=== PATIENT | male | born 1955 | race Caucasian/White ===

== ENCOUNTER 2017-07-04 15:04 | Inpatient (IN) | payer OTHER ==
[~2017-07-04] VITALS: Ht 175.3 cm; Wt 83.0 kg
[~2017-07-04 15:04] MED LIST: IRON28TA PO; LISI-363 PO; MAGN400 PO; METO50TA PO; MULTCAP14 PO; PROT40TA PO
[2017-07-04] MEDS ORDERED: SODIUM CHLORIDE 0.9% FLUSH 5 ML FLUSH IV FLUSH PRN (15:15)
[2017-07-04 15:18] VITALS: BP 133/89; PULSE 76; RESP 18; TEMP 98.3; O2SAT 97
--- NOTE | 2017-07-04 15:56 | RADRPT ---
EXAM DATE/TIME: 07/04/2017 15:19 [facility] COMPARISON: CHEST SINGLE AP, March 11, 2015, 13:02. INDICATIONS : Evaluate for syncope and chest pain from fall. MEDICAL HISTORY : None. SURGICAL HISTORY : None. ENCOUNTER: Initial ACUITY: 1 day PAIN SCORE: 10/10 LOCATION: Bilateral chest FINDINGS: A single view of the chest demonstrates the lungs to be symmetrically aerated without evidence of mas s or infiltrate. There is some minimal blunting of the right costophrenic angle which could represent a very small effusion. The is stable, 1.8 cm density projects over the posterior left seventh rib a nd probably represents callus associated with prior fracture. No pneumothorax. Osseous structures are otherwise intact. The cardiomediastinal contours are unremarkable. CONCLUSION: 1. Probable old healed fracture deformity with callous in the posterior aspect of the left seventh ri b. 2. No acute infiltrate. 3. No blunting of the right costophrenic angle may represent a small effusion or pleural parenchymal scarring. . Felipe Dove MD on July 04, 2017 at 15:50 Board Certified Radiologist. This report was verified electronically.
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
[2017-07-04 16:15] LABS: AUTOMATED NEUTROPHIL # 6.6 TH/MM3 (1.8-7.7); BASOPHIL % 0.2 % (0.0-2.0); EOSINOPHIL % 0.2 % (0.0-4.0); HEMATOCRIT 36.3 % (39.0-51.0); HEMO FLAGS DIFF FINAL; LYMPH % 6.4 % (9.0-44.0); LYMPHOCYTE # 0.5 TH/MM3 (1.0-4.8); MEAN CELL VOLUME 98.9 FL (80.0-100.0); MEAN CORPUSCULAR HEMOGLOBIN 34.9 PG (27.0-34.0); MEAN CORPUSCULAR HGB CONC 35.3 % (32.0-36.0); MONO % 11.1 % (0.0-8.0); NEUT % 82.1 % (16.0-70.0); PLATELET COUNT 117 TH/MM3 (150-450); RED BLOOD COUNT 3.67 MIL/MM3 (4.50-5.90)
[2017-07-04 16:32] LABS: APTT (PATIENT) 28.7 SEC (24.3-30.1); INTERNATIONAL NORMALIZED RATIO 1.1 RATIO; PROTHROMBIN TIME - PATIENT 12.5 SEC (9.8-11.6)
[2017-07-04 17:05] LABS: ALCOHOL LESS THAN 3 MG/DL (0-5); ALKALINE PHOSPHATASE 46 U/L (45-117); ALT (GPT) 62 U/L (12-78); ANION GAP 13 MEQ/L (5-15); AST (GOT) 76 U/L (15-37); BLOOD UREA NITROGEN 11 MG/DL (7-18); CHLORIDE 80 MEQ/L (98-107); CREATINE KINASE 507 U/L (39-308); GLOMERULAR FILTRATION RATE 54 ML/MIN (>89); POTASSIUM 3.5 MEQ/L (3.5-5.1); TOTAL BILIRUBIN ADULT 1.3 MG/DL (0.2-1.0)
[2017-07-04 17:11] LABS: SODIUM (NA) 119 MEQ/L (136-145)
[2017-07-04] MEDS ORDERED: DIPHTH/TETANUS/ACEL PERTUSSIS (BOOSTER) 0.5 ML VIAL/PFS IM ONE (17:30)
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
[2017-07-04 17:31] VITALS: BP 155/88; PULSE 76; RESP 18; TEMP 98.3; O2SAT 97; O2SAT 99
[2017-07-04 17:37] LABS: CKMB 3.3 NG/ML (0.5-3.6)
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
[2017-07-04] MEDS ORDERED: PANT40TA3 PO (18:38)
[2017-07-04] MEDS ORDERED: LISI-515 PO (18:38)
[2017-07-04] MEDS ORDERED: MULT1TAB39 PO (18:38)
[2017-07-04] MEDS ORDERED: METO50TA PO (18:38)
--- NOTE | 2017-07-04 18:40 | PD ---
Physical Exam Date Seen by Provider: Jul 04, 2017 Time Seen by Provider: 18:38 Data Data Last Documented VS Vital Signs Date Time Temp Pulse Resp B/P (MAP) Pulse Ox O2 Delivery O2 Flow Rate FiO2 07/04/17 17:31 79 18 98 Room Air 07/04/17 17:31 98.3 155/88 (110) Orders Orders Ammonia (07/04/17 15:10) Complete Blood Count With Diff (07/04/17 15:10) Comprehensive Metabolic Panel (07/04/17 15:10) Creatine Kinase (Cpk) (07/04/17 15:10) Prothrombin Time / Inr (Pt) (07/04/17 15:10) Act Partial Throm Time (Ptt) (07/04/17 15:10) Troponin I (07/04/17 15:10) Urinalysis - C+S If Indicated (07/04/17 15:10) Chest, Single Ap (07/04/17 15:10) Ct Brain W/O Iv Contrast(Rout) (07/04/17 15:10) Blood Glucose (07/04/17 15:10) Ecg Monitoring (07/04/17 15:10) Iv Access Insert/Monitor (07/04/17 15:10) Cath For Specimen (07/04/17 15:10) Oximetry (07/04/17 15:10) Sodium Chloride 0.9% Flush (Ns Flush) (07/04/17 15:15) Drug Screen, Random Urine (07/04/17 15:10) Alcohol (Ethanol) (07/04/17 15:10) CKMB (07/04/17 15:45) CKMB% (07/04/17 15:45) Ct Cerv Spine W/O Contrast (07/04/17 ) [id number] (Booster) Inj (Boostrix (07/04/17 17:30) Sodium, Random Urine (07/04/17 17:29) Potassium, Random Urine (K) (07/04/17 17:29) Cortisol (07/04/17 18:57) Creatinine, Random Urine (07/04/17 18:57) Osmolality, Urine (07/04/17 18:57) Osmolality,Serum (07/04/17 18:57) Thyroid Stimulating Hormone (07/04/17 18:57) Urine Urea Random (07/04/17 18:57) Sodium (Na) (07/04/17 22:00) Sodium (Na) (07/05/17 10:00) Sodium (Na) (07/05/17 16:00) Sodium (Na) (07/05/17 22:00) Sodium (Na) (07/06/17 04:00) Admit Order (Ed Use Only) (07/04/17 ) Labs Laboratory Tests Test 07/04/17 15:45 07/04/17 15:48 07/04/17 17:40 White Blood Count 8.0 TH/MM3 Red Blood Count 3.67 MIL/MM3 Hemoglobin 12.8 GM/DL Hematocrit 36.3 % Mean Corpuscular Volume 98.9 FL Mean Corpuscular Hemoglobin 34.9 PG Mean Corpuscular Hemoglobin Concent 35.3 % Red Cell Distribution Width 15.0 % Platelet Count 117 TH/MM3 Mean Platelet Volume 8.2 FL Neutrophils (%) (Auto) 82.1 % Lymphocytes (%) (Auto) 6.4 % Monocytes (%) (Auto) 11.1 % Eosinophils (%) (Auto) 0.2 % Basophils (%) (Auto) 0.2 % Neutrophils # (Auto) 6.6 TH/MM3 Lymphocytes # (Auto) 0.5 TH/MM3 Monocytes # (Auto) 0.9 TH/MM3 Eosinophils # (Auto) 0.0 TH/MM3 Basophils # (Auto) 0.0 TH/MM3 CBC Comment DIFF FINAL Differential Comment Prothrombin Time 12.5 SEC Prothromb Time International Ratio 1.1 RATIO Activated Partial Thromboplast Time 28.7 SEC Blood Urea Nitrogen 11 MG/DL Creatinine 1.33 MG/DL Random Glucose 177 MG/DL Total Protein 6.8 GM/DL Albumin 3.5 GM/DL Calcium Level 7.8 MG/DL Alkaline Phosphatase 46 U/L Aspartate Amino Transf (AST/SGOT) 76 U/L Alanine Aminotransferase (ALT/SGPT) 62 U/L Total Bilirubin 1.3 MG/DL Sodium Level 119 MEQ/L Potassium Level 3.5 MEQ/L Chloride Level 80 MEQ/L Carbon Dioxide Level 26.0 MEQ/L Anion Gap 13 MEQ/L Estimat Glomerular Filtration Rate 54 ML/MIN Total Creatine Kinase 507 U/L Creatine Kinase MB 3.3 NG/ML Creatine Kinase MB % 0.7 % Troponin I LESS THAN 0.02 NG/ML B-Type Natriuretic Peptide 114 PG/ML Ethyl Alcohol Level LESS THAN 3 MG/DL Ammonia 13 MCMOL/L Urine Color YELLOW Urine Turbidity CLEAR Urine pH 6.5 Urine Specific [place] 1.005 Urine Protein NEG mg/dL Urine Glucose (UA) 70 mg/dL Urine Ketones NEG mg/dL Urine Occult Blood NEG Urine Nitrite NEG Urine Bilirubin NEG Urine Urobilinogen 4.0 MG/DL Urine Leukocyte Esterase NEG Urine WBC LESS THAN 1 /hpf Microscopic Urinalysis Comment CATH-CULT NOT IND Urine Random Sodium 35 MEQ/L Urine Random Potassium 15 MEQ/L Urine Opiates Screen NEG Urine Barbiturates Screen NEG Urine Amphetamines Screen NEG Urine Benzodiazepines Screen NEG Urine Cocaine Screen NEG Urine Cannabinoids Screen NEG MDM Supervised Visit with DORI: No Narrative Course I was asked to evaluate this patient's scalp laceration. The patient was initially seen by Dr. Mccormack. Please see his note for full H&P. On my exam the patient is alert and oriented. There is a 4 cm laceration on the apex of the scalp without active bleeding.. Laceration repair was performed. Please see my procedure note for details. Dr. Mccormack retains care of this patient. Please see his note for disposition. Procedures Procedure Narrative LACERATION LOCATION: Scalp LENGTH: 4 cm NUMBER OF STITCHES/MYKEL: 5 mykel REPAIR: The area of the laceration was prepped with Betadine and sterilely draped. The laceration was infiltrated with 1% lidocaine. The wound was copiously irrigated and explored without evidence of foreign body, tendon injury or neurovascular injury. The wound was closed using surgical mykel. This was a single layer repair. The patient was advised to keep the wound clean and dry. Patient tolerated the procedure well. Michell Buenrostro Jul 04, 2017 18:40
[2017-07-04 18:52] LABS: BLOOD, URINE NEG (NEG); COMMENT (UR) CATH-CULT NOT IND; CULTURE IF INDICATED CATH CULTURE NOT IND; GLUCOSE,URINE 70 mg/dL (NEG); KETONE, URINE NEG (NEG); NITRITE,URINE NEG (NEG); PH, URINE 6.5 (5.0-8.5); URINE COLOR YELLOW (YELLW/STRAW)
[2017-07-04] MEDS ORDERED: CHLORHEXIDINE GLUCONATE 2 % 1 PACK (2 CLOTHS) TOP PRN (19:15)
[2017-07-04] MEDS ORDERED: RESP: ALBUTEROL 2.5 MG/3 ML NEB (PRN) INH (19:15)
[2017-07-04] MEDS ORDERED: MISCELLANEOUS NURSING INFORMATION XX SCH (19:15)
[2017-07-04] MEDS ORDERED: SODIUM CHLORIDE 0.9% FLUSH 10 ML FLUSH IV FLUSH PRN (19:15)
[2017-07-04] MEDS ORDERED: ACETAMINOPHEN 325 MG TAB PO PRN (19:15)
[2017-07-04] MEDS ORDERED: LACTULOSE SYRUP 20 GM/30 ML CUP PO PRN (19:15)
[2017-07-04] MEDS ORDERED: ONDANSETRON HCL 4 MG/2 ML VIAL IV PUSH PRN (19:15)
[2017-07-04] MEDS ORDERED: BISACODYL 10 MG SUPP RECTAL PRN (19:15)
[2017-07-04] MEDS ORDERED: MAGNESIUM HYDROXIDE SUSP 30 ML CUP PO PRN (19:15)
[2017-07-04] MEDS ORDERED: SENNOSIDES 8.6 MG TAB PO PRN (19:15)
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
[2017-07-04 20:00] VITALS: BP 137/67; PULSE 84; RESP 17; O2SAT 96
[2017-07-04] MEDS ORDERED: SODIUM CHLOR 0.9% 1000 ML INJ 1,000 ML IV SCH (20:00)
[2017-07-04] MEDS: MULTIVITAMIN TAB PO SCH (20:03)
[2017-07-04] MEDS: THIAMINE INJ 100 MG in SODIUM CHLORIDE 0.9% INJ 100 ML IV SCH (20:03)
[2017-07-04] MEDS: HEPARIN SODIUM - SQ 10,000 UNITS/ML VIAL SQ SCH (20:04)
[2017-07-04] MEDS ORDERED: GLUCAGON 1 MG/ML VIAL OTHER PRN (20:45)
[2017-07-04] MEDS ORDERED: DEXTROSE 50% IN WATER 50 ML VIAL(D50) IV PUSH PRN (20:45)
[2017-07-04 20:59] LABS: MAGNESIUM 0.4 MG/DL (1.5-2.5)
[2017-07-04 21:00] VITALS: BP 124/72; PULSE 73; RESP 12; TEMP 98.5; O2SAT 97
[2017-07-04] MEDS: INSULIN ASPART SUPPLEMENTAL SCALE SQ SCH (21:00)
[2017-07-04 21:31] LABS: CORTISOL 31.8 MCG/DL
[2017-07-04] MEDS: DOCUSATE SODIUM 50 MG/SENNA 8.6 MG TAB PO SCH (22:01)
[2017-07-04] MEDS: SODIUM CHLORIDE 0.9% FLUSH 10 ML FLUSH IV FLUSH SCH (22:01)
[2017-07-04] MEDS ORDERED: MAGNESIUM SULFATE 1 GM PREMIX 100 ML IV SCH (22:45)
[2017-07-04 23:00] VITALS: PULSE 79
[2017-07-04] MEDS: MAGNESIUM SULFATE 1 GM PREMIX 100 ML IV SCH (23:47)
--- NOTE | 2017-07-04 23:50 | RADRPT ---
EXAM DATE/TIME: 07/04/2017 23:03 [place] COMPARISON: No previous studies available for comparison. INDICATIONS : Increased BUN and creatinine. MEDICAL HISTORY : Hypertension. Gastroesophageal reflux disease. ETOH abuse. Pneumonia. Seizures. Ulcer. SURGICAL HISTORY : Left upper wedge resection. ENCOUNTER: Initial ACUITY: 1 day PAIN SCORE: 0/10 LOCATION: Bilateral flank MEASUREMENTS: RIGHT KIDNEY: 9.8 x 4.9 x 5.6 cm LEFT KIDNEY: 9.6 x 4.9 x 6.0 cm FINDINGS: RIGHT KIDNEY: Renal cortex is normal in thickness and echotexture. No evidence of hydronephrosis or shadowing ston e. There is a lesion in the upper pole cortex which is poorly defined and has a mixed pattern of ech otexture, both hyperechoic and hypoechoic, measuring 1.8 x 1.6 x 1.8 cm. No increased flow seen by c olor Doppler. LEFT KIDNEY: Renal cortex is normal in thickness and echotexture. No hydronephrosis, stone, or mass. BLADDER: Within normal limits given the degree of distension. CONCLUSION: 1. No evidence of hydronephrosis. 2. Heterogeneous echotexture lesion upper pole right kidney measure 1.8 cm and has features sugges tive of a solid mass. Marcelo Pandey MD on July 04, 2017 at 23:46 Board Certified Radiologist. This report was verified electronically.
[2017-07-05] VITALS (10 sets, daily range): BP systolic 111–161; BP diastolic 67–86; PULSE 75–95; RESP 16–24; TEMP 98–98.6; O2SAT 95–100
[2017-07-05] MEDS: MAGNESIUM SULFATE 1 GM PREMIX 100 ML IV SCH ×3 (00:50→03:03)
[2017-07-05] MEDS: CHLORHEXIDINE GLUCONATE 2 % 1 PACK (2 CLOTHS) TOP SCH (04:00)
[2017-07-05 05:28] LABS: AUTOMATED NEUTROPHIL # 7.4 TH/MM3 (1.8-7.7); BASOPHIL % 0.3 % (0.0-2.0); EOSINOPHIL % 0.1 % (0.0-4.0); HEMATOCRIT 35.2 % (39.0-51.0); HEMO FLAGS DIFF FINAL; LYMPH % 6.1 % (9.0-44.0); LYMPHOCYTE # 0.6 TH/MM3 (1.0-4.8); MEAN CELL VOLUME 98.3 FL (80.0-100.0); MEAN CORPUSCULAR HEMOGLOBIN 35.2 PG (27.0-34.0); MEAN CORPUSCULAR HGB CONC 35.8 % (32.0-36.0); NEUT % 81.5 % (16.0-70.0); PLATELET COUNT 107 TH/MM3 (150-450); RED BLOOD COUNT 3.58 MIL/MM3 (4.50-5.90); WHITE BLOOD COUNT 9.1 TH/MM3 (4.0-11.0)
[2017-07-05 06:07] LABS: ALKALINE PHOSPHATASE 38 U/L (45-117); ALT (GPT) 52 U/L (12-78); ANION GAP 11 MEQ/L (5-15); AST (GOT) 56 U/L (15-37); BICARBONATE 27.2 MEQ/L (21.0-32.0); BLOOD UREA NITROGEN 11 MG/DL (7-18); CHLORIDE 88 MEQ/L (98-107); GLOMERULAR FILTRATION RATE 70 ML/MIN (>89); MAGNESIUM 1.7 MG/DL (1.5-2.5); SODIUM (NA) 126 MEQ/L (136-145); TOTAL BILIRUBIN ADULT 1.3 MG/DL (0.2-1.0)
[2017-07-05 06:30] LABS: POTASSIUM 2.8 MEQ/L (3.5-5.1)
[2017-07-05] MEDS ORDERED: POTASSIUM CHLORIDE 25 MEQ EFFERVESCENT TAB PO PRN (06:45)
[2017-07-05] MEDS ORDERED: POTASSIUM CHLOR 20 MEQ PREMIX 100 ML IV PRN (06:45)
[2017-07-05] MEDS ORDERED: MAGNESIUM OXIDE 400 MG TAB PO PRN (06:45)
[2017-07-05] MEDS ORDERED: POTASSIUM CHLOR 40 MEQ PREMIX 100 ML IV PRN ×2 (06:45)
[2017-07-05] MEDS ORDERED: SODIUM PHOSPHATE INJ 30 MMOL in SODIUM CHLOR 0.9% 250 ML INJ 240 ML IV PRN (06:45)
[2017-07-05] MEDS ORDERED: MAGNESIUM SULFATE INJ 4 GM in SODIUM CHLORIDE 0.9% INJ 92 ML IV PRN (06:45)
[2017-07-05] MEDS ORDERED: POTASSIUM PHOSPHATE INJ 30 MMOL in SODIUM CHLOR 0.9% 250 ML INJ 250 ML IV PRN (06:45)
[2017-07-05] MEDS ORDERED: POTASSIUM PHOSPHATE MONOBASIC 500 MG TAB PO PRN (06:45)
[2017-07-05] MEDS ORDERED: MAGNESIUM SULFATE INJ 2 GM in SODIUM CHLORIDE 0.9% INJ 96 ML IV PRN (06:45)
[2017-07-05] MEDS ORDERED: POTASSIUM PHOSPHATE MONOBASIC 500 MG TAB PO/TUBE PRN (06:45)
[2017-07-05] MEDS: DEXT 5%-NACL 0.9% 1000 ML INJ 1,000 ML IV SCH ×2 (06:57→17:48)
[2017-07-05] MEDS: POTASSIUM CHLOR 20 MEQ PREMIX 100 ML IV PRN ×4 (06:58→17:48)
[2017-07-05] MEDS: INSULIN ASPART SUPPLEMENTAL SCALE SQ SCH ×4 (08:00→21:00)
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
[2017-07-05] MEDS ORDERED: DESMOPRESSIN ACETATE 4 MCG/ML VIAL IV PUSH PRN (08:30)
[2017-07-05] MEDS: SODIUM CHLORIDE 0.9% FLUSH 10 ML FLUSH IV FLUSH SCH ×2 (10:26→21:00)
[2017-07-05] MEDS: METOPROLOL TARTRATE 25 MG TAB PO SCH ×2 (10:26→21:41)
[2017-07-05] MEDS: MULTIVITAMIN TAB PO SCH (10:26)
[2017-07-05] MEDS: HEPARIN SODIUM - SQ 10,000 UNITS/ML VIAL SQ SCH ×2 (10:26→21:42)
[2017-07-05] MEDS: DOCUSATE SODIUM 50 MG/SENNA 8.6 MG TAB PO SCH ×2 (10:26→21:41)
[2017-07-05] MEDS: PANTOPRAZOLE SOD 40 MG DELAYED RELEASE TAB PO SCH (10:27)
[2017-07-05] MEDS: MAGNESIUM OXIDE 400 MG TAB PO SCH ×2 (10:27→21:41)
[2017-07-05] MEDS: THIAMINE INJ 100 MG in SODIUM CHLORIDE 0.9% INJ 100 ML IV SCH (12:25)
--- NOTE | 2017-07-05 17:38 | EKG ---
Date Performed: 07/04/2017 Time Performed: 22:34:03 PTAGE: 62 years EKG: Sinus rhythm MINIMAL ST DEPRESSION BORDERLINE ECG Compared to PREVIOUS TRACING , ST depression is slightly more prominent, otherwise no significant wilmar nge. PREVIOUS TRACIN03/11/2015 13.27 DOCTOR: Miah Qureshi Interpretating Date/Time 07/05/2017 17:36:18
[2017-07-06] VITALS (9 sets, daily range): BP systolic 139–194; BP diastolic 65–92; PULSE 66–88; RESP 16–24; TEMP 98–98.5; O2SAT 97–100
[2017-07-06] MEDS: CHLORHEXIDINE GLUCONATE 2 % 1 PACK (2 CLOTHS) TOP SCH (04:00)
[2017-07-06] MEDS ORDERED: LABETALOL HCL 100 MG/20 ML VIAL IV PUSH PRN (05:30)
[2017-07-06] MEDS ORDERED: hydrALAZINE HCL 20 MG/ML VIAL IV PUSH PRN (05:30)
[2017-07-06] MEDS ORDERED: amLODIPine BESYLATE 5 MG TAB PO ONE (05:45)
[2017-07-06] MEDS: DEXT 5%-NACL 0.9% 1000 ML INJ 1,000 ML IV SCH (06:35)
[2017-07-06] MEDS: INSULIN ASPART SUPPLEMENTAL SCALE SQ SCH ×3 (08:00→17:00)
[2017-07-06] MEDS: THIAMINE INJ 100 MG in SODIUM CHLORIDE 0.9% INJ 100 ML IV SCH (09:39)
[2017-07-06] MEDS: MULTIVITAMIN TAB PO SCH (09:40)
[2017-07-06] MEDS: DOCUSATE SODIUM 50 MG/SENNA 8.6 MG TAB PO SCH (09:40)
[2017-07-06] MEDS: SODIUM CHLORIDE 0.9% FLUSH 10 ML FLUSH IV FLUSH SCH (09:40)
[2017-07-06] MEDS: METOPROLOL TARTRATE 25 MG TAB PO SCH ×2 (09:40→21:36)
[2017-07-06] MEDS: PANTOPRAZOLE SOD 40 MG DELAYED RELEASE TAB PO SCH (09:40)
[2017-07-06] MEDS: MAGNESIUM OXIDE 400 MG TAB PO SCH ×2 (09:40→21:35)
[2017-07-06] MEDS: HEPARIN SODIUM - SQ 10,000 UNITS/ML VIAL SQ SCH ×2 (09:41→21:37)
--- NOTE | 2017-07-06 10:43 | MG ---
cc: TASNEEM HDZ M.D. Lab No: [id number] Date: 07/06/17 Age: 62 Sex: M Race: HISTORY A 62-year-old. Awake drowsy EEG. Hit his head. Seeing animals in the TV. Awoke on the floor. MEDICATIONS 1. Protonix. 2. Thiamine. DESCRIPTION A 7 Hz, 50 microvolt symmetric posterior and diffuse rhythm is seen. The recording overall is synchronous and symmetric. No epileptiform or seizure activity is noted. There were no hemisphere asymmetries. Bitemporal muscle artifact is seen throughout a fair amount of the recording. Photic stimulation was performed at the end of the recording without significant posterior driving. IMPRESSION A normal awake EEG. No evidence for a focal or diffuse abnormality. MD YEMI Camacho/BJF /10:01 AM /10:41 AM
[2017-07-06 11:26] LABS: UR UREA/CREAT RATIO 10.14 mg/mg
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
[2017-07-06] MEDS ORDERED: SODIUM CHLOR 0.9% 1000 ML INJ 1,000 ML IV SCH (11:30)
[2017-07-06] MEDS ORDERED: cloNIDine HCL 0.1 MG TAB PO PRN (16:00)
[2017-07-06] MEDS ORDERED: ENALAPRILAT 1.25 MG/ML VIAL IV PUSH PRN (16:00)
[2017-07-06] MEDS ORDERED: SODIUM CHLORIDE 1 GRAM TAB PO ONE ×2 (17:15→23:15)
[2017-07-06] MEDS ORDERED: SODIUM CHLORIDE 1 GRAM TAB PO SCH (21:00)
[2017-07-07] MEDS ORDERED: amLODIPine BESYLATE 5 MG TAB PO SCH (09:00)
[2017-07-07 20:45] VITALS: BP 163/88; PULSE 86; RESP 17; TEMP 97.7; O2SAT 99
[2017-07-08] VITALS: BP 156/86; PULSE 84; RESP 18; TEMP 98.6; O2SAT 99
[2017-07-08 04:15] VITALS: BP 150/89; PULSE 88; RESP 19; TEMP 97.1; O2SAT 98
== END 2017-07-06 23:41 | disposition left against medical advice (07) | DRG 644 ==
LOC: NEPC 15:04 → NEDH 19:01 → N03A 21:00 → N05A 07-06 14:51
PROVIDERS: ADMIT Emergency Medicine; ATTEND Emergency Medicine
PROC: 0HQ0XZZ Repair Scalp Skin, External Approach (ICD-10-PCS; principal; 2017-07-04)
DX: E22.2 Syndrome of inappropriate secretion of antidiuretic hormone (principal); F10.231 Alcohol dependence with withdrawal delirium; R56.9 Unspecified convulsions; D69.59 Other secondary thrombocytopenia; E83.42 Hypomagnesemia; N18.3 Chronic kidney disease, stage 3 (moderate); S01.01XA Laceration without foreign body of scalp, initial encounter; I12.9 Hypertensive chronic kidney disease with stage 1 through stage 4 chronic kidney disease, or unspecified chronic kidney disease; D64.9 Anemia, unspecified; K21.9 Gastro-esophageal reflux disease without esophagitis; R73.9 Hyperglycemia, unspecified; W19.XXXA Unspecified fall, initial encounter; Y92.013 Bedroom of single-family (private) house as the place of occurrence of the external cause; Z87.891 Personal history of nicotine dependence
CPT/HCPCS: 12002; 70450; 71010; 72125; 76775; 80053; 80307; 81001; 82140; 82533; 82550; 82552; 82570; 82607; 82948; 83735; 83880; 83930; 83935; 84100; 84132; 84133; 84295; 84300; 84443; 84484; 84540; 85025; 85610; 85730; 87641; 90471; 90715; 93005; 95819; J1644; J2597; J3411; J3475; J3480; J7030; J7042

== ENCOUNTER 2017-07-07 01:20 | Emergency (ER) | payer OTHER ==
[~2017-07-07 01:20] MED LIST changes: -IRON28TA PO; -LISI-363 PO; +LISI-515 PO; -MAGN400 PO; +MULT1TAB39 PO; -MULTCAP14 PO; +PANT40TA3 PO; -PROT40TA PO
--- NOTE | 2017-07-07 12:54 | EKG ---
Date Performed: 07/07/2017 Time Performed: 03:20:31 PTAGE: 62 years EKG: Sinus rhythm Compared to prior tracing no significant change NORMAL ECG PREVIOUS TRACING : 07/04/17 @ 2234 DOCTOR: Prosper Vanegas Interpretating Date/Time 07/07/2017 12:53:50
== END 2017-07-07 01:21 ==
LOC: NED 01:20
DX: Z00.00 Encounter for general adult medical examination without abnormal findings (principal)
CPT/HCPCS: 93005; 99281

== ENCOUNTER 2017-07-07 03:50 | Inpatient (IN) | payer OTHER ==
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
[2017-07-07] MEDS ORDERED: SODIUM CHLOR 0.9% 1000 ML INJ 1,000 ML IV SCH (05:15)
[2017-07-07 07:02] LABS: BICARBONATE 24.6 MEQ/L (21.0-32.0); POTASSIUM 3.4 MEQ/L (3.5-5.1)
[2017-07-07 08:00] VITALS: BP 208/92; PULSE 100; RESP 16; TEMP 98.9; O2SAT 95
[2017-07-07] MEDS ORDERED: ONDANSETRON HCL 4 MG/2 ML VIAL IV PRN (08:45)
[2017-07-07] MEDS ORDERED: POTASSIUM CHLORIDE 20 MEQ CONTROLLED RELEASE TAB PO ONE (08:45)
[2017-07-07] MEDS ORDERED: ACETAMINOPHEN 325 MG TAB PO PRN (08:45)
[2017-07-07] MEDS ORDERED: MULTIVITAMIN TAB PO SCH (09:00)
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
[2017-07-07] MEDS: PANTOPRAZOLE SOD 40 MG DELAYED RELEASE TAB PO SCH (11:07)
[2017-07-07] MEDS: METOPROLOL TARTRATE 25 MG TAB PO SCH ×2 (11:07→21:35)
[2017-07-07] MEDS: LISINOPRIL 20 MG TAB PO SCH (11:07)
[2017-07-07] MEDS: MULTIVITAMINS/MINERALS THERAPEUTIC TAB PO SCH (11:07)
[2017-07-07] MEDS: SODIUM CHLORIDE 1 GRAM TAB PO SCH ×2 (11:08→21:35)
[2017-07-07] MEDS: FOLIC ACID 1 MG TAB PO SCH (11:08)
[2017-07-07] MEDS: THIAMINE HCL 100 MG TAB PO SCH (11:08)
[2017-07-07] MEDS: HEPARIN SODIUM - SQ 10,000 UNITS/ML VIAL SQ SCH ×2 (11:09→21:35)
[2017-07-07] MEDS ORDERED: NICOTINE 14 MG/24 HR PATCH T-DERMAL ONE (11:45)
[2017-07-07 12:00] VITALS: BP 159/74; PULSE 90; RESP 16; TEMP 97.4; O2SAT 96
[2017-07-07] MEDS: chlordiazePOXIDE 25 MG CAP PO SCH ×2 (12:29→17:11)
[2017-07-07] MEDS: NICOTINE 14 MG/24 HR PATCH T-DERMAL SCH (12:29)
[2017-07-07 16:00] VITALS: BP 196/83; PULSE 92; RESP 16; TEMP 98.7; O2SAT 96
[2017-07-07] MEDS: cloNIDine HCL 0.1 MG TAB PO PRN (17:11)
[2017-07-08 08:08] LABS: AUTOMATED NEUTROPHIL # 4.4 TH/MM3 (1.8-7.7); BASOPHIL # 0.1 TH/MM3 (0-0.2); BASOPHIL % 0.8 % (0.0-2.0); EOSINOPHIL % 0.5 % (0.0-4.0); HEMO FLAGS DIFF FINAL; LYMPH % 12.2 % (9.0-44.0); LYMPHOCYTE # 0.8 TH/MM3 (1.0-4.8); MEAN CELL VOLUME 99.8 FL (80.0-100.0); MEAN CORPUSCULAR HEMOGLOBIN 33.9 PG (27.0-34.0); MONO % 21.4 % (0.0-8.0); NEUT % 65.1 % (16.0-70.0); PLATELET COUNT 231 TH/MM3 (150-450); RED BLOOD COUNT 3.01 MIL/MM3 (4.50-5.90); RED CELL DISTRIBUTION WIDTH 15.3 % (11.6-17.2); WHITE BLOOD COUNT 6.8 TH/MM3 (4.0-11.0)
[2017-07-08] MEDS: REMOVE OLD PATCH T-DERMAL SCH (08:14)
[2017-07-08] MEDS: NICOTINE 14 MG/24 HR PATCH T-DERMAL SCH (08:14)
[2017-07-08] MEDS: LISINOPRIL 20 MG TAB PO SCH (08:16)
[2017-07-08] MEDS: THIAMINE HCL 100 MG TAB PO SCH (08:16)
[2017-07-08] MEDS: chlordiazePOXIDE 25 MG CAP PO SCH ×3 (08:17→16:57)
[2017-07-08] MEDS: FOLIC ACID 1 MG TAB PO SCH (08:17)
[2017-07-08] MEDS: MULTIVITAMINS/MINERALS THERAPEUTIC TAB PO SCH (08:17)
[2017-07-08] MEDS: METOPROLOL TARTRATE 25 MG TAB PO SCH ×2 (08:17→22:26)
[2017-07-08] MEDS: SODIUM CHLORIDE 1 GRAM TAB PO SCH ×2 (08:18→22:26)
[2017-07-08] MEDS: PANTOPRAZOLE SOD 40 MG DELAYED RELEASE TAB PO SCH (08:18)
[2017-07-08] MEDS: HEPARIN SODIUM - SQ 10,000 UNITS/ML VIAL SQ SCH ×2 (08:22→22:27)
[2017-07-08 08:28] LABS: BICARBONATE 22.6 MEQ/L (21.0-32.0); MAGNESIUM 0.8 MG/DL (1.5-2.5); POTASSIUM 3.3 MEQ/L (3.5-5.1)
[2017-07-08 08:40] VITALS: BP 154/88; PULSE 95; RESP 20; TEMP 98.3; O2SAT 96
[2017-07-08] MEDS: cloNIDine HCL 0.1 MG TAB PO PRN ×2 (11:55→23:03)
[2017-07-08 12:18] VITALS: BP 170/84; PULSE 81; RESP 20; TEMP 99.1; O2SAT 97
--- NOTE | 2017-07-08 13:14 | HHI.PR ---
Subjective Remarks Pt alert today, less agitated Afebrile Objective Vitals Vital Signs Date Time Temp Pulse Resp B/P (MAP) Pulse Ox O2 Delivery O2 Flow Rate FiO2 07/08/17 12:18 99.1 81 20 170/84 (112) 97 07/08/17 08:40 98.3 95 20 154/88 (110) 96 07/07/17 16:00 98.7 92 16 196/83 (120) 96 07/08/17 07/08/17 07/09/17 15:00 23:00 07:00 Output Total 350 ml Balance -350 ml Output Urine Total 350 ml Result Diagram: 07/08/17 0746 07/08/17 0746 Other Results Laboratory Tests Test 07/07/17 05:59 07/07/17 11:37 07/07/17 14:44 07/08/17 07:46 Blood Urea Nitrogen 9 MG/DL 9 MG/DL Creatinine 0.98 MG/DL 1.01 MG/DL Random Glucose 93 MG/DL 112 MG/DL Calcium Level 7.5 MG/DL 8.1 MG/DL Sodium Level 124 MEQ/L 127 MEQ/L 131 MEQ/L Potassium Level 3.4 MEQ/L 3.3 MEQ/L Chloride Level 89 MEQ/L 97 MEQ/L Carbon Dioxide Level 24.6 MEQ/L 22.6 MEQ/L Anion Gap 10 MEQ/L 11 MEQ/L Estimat Glomerular Filtration Rate 78 ML/MIN 75 ML/MIN Serum Osmolality 263 MOSM/KG Urine Osmolality 94 MOSM/KG Urine Random Sodium 19 MEQ/L White Blood Count 6.8 TH/MM3 Red Blood Count 3.01 MIL/MM3 Hemoglobin 10.2 GM/DL Hematocrit 30.0 % Mean Corpuscular Volume 99.8 FL Mean Corpuscular Hemoglobin 33.9 PG Mean Corpuscular Hemoglobin Concent 34.0 % Red Cell Distribution Width 15.3 % Platelet Count 231 TH/MM3 Mean Platelet Volume 7.7 FL Neutrophils (%) (Auto) 65.1 % Lymphocytes (%) (Auto) 12.2 % Monocytes (%) (Auto) 21.4 % Eosinophils (%) (Auto) 0.5 % Basophils (%) (Auto) 0.8 % Neutrophils # (Auto) 4.4 TH/MM3 Lymphocytes # (Auto) 0.8 TH/MM3 Monocytes # (Auto) 1.5 TH/MM3 Eosinophils # (Auto) 0.0 TH/MM3 Basophils # (Auto) 0.1 TH/MM3 CBC Comment DIFF FINAL Differential Comment Magnesium Level 0.8 MG/DL Objective Remarks General: NAD, slightly confused but improving. Chest: CTA Cardiac: Regular Abd: +BS, soft ND/NT Ext: No edema A/P Problem List: (1) Hyponatremia ICD Codes: E87.1 - Hyponatremia Status: Acute Plan: Pt is a 62 yo male with HTN, GERD, EtOH abuse, tobacco abuse who presents to [facility] ED with confusion and pt had fallen at home. His reports no prior known history of seizures however when he was admitted in 2012 for syncope workup he experienced severe DTs, aspiration pneumonia, mechanical ventilation. There was question of whether he had alcohol withdrawal seizure at that time. Syncope workup including echo, telemetry, carotid ultrasound and MRI were unremarkable at that time. Pt was originally admitted on 07/04 to the intensivists but left AMA on 07/06/17 and returned a few hours later for readmission. Hyponatremia Confusion History of alcohol abuse with h/o DTs Acute Seizure - Pt had a 5 cm scalp laceration that was repaired in the ED after a fall at home. - CT brain (07/04) no acute abnormality. - When he went for CT C-spine he began having a seizure which resolved spontaneously without treatment. Prior h/o ?seizure associated with EtOH w/d. - CT C-spine (07/04) was negative. - Pts Na+ at admission was 119. Pt has CKD, stage 3 and a history of long- term alcohol abuse. Reportedly quit drinking about a week and a half prior to admission but he reported drinking one alcoholic beverage the day prior to admission. He has been drinking more water at home, around three 16 ounce bottles of water and Powerade every day. - Seizure etiology multifactorial, secondary to severe electrolyte abnormalities with hyponatremia/hypomagnesemia, EtOH withdrawal may also be contributing as history of cessation 1 1/2 weeks prior to admission but this time line may not be reliable given that is not home during the day. - EEG (07/06) --> normal awake EEG, no evidence for a focal or diffuse abnormality - B12 level 503 - Will hold off on anticonvulsant at this time. No driving, climbing ladders , swimming x 6 months. - Monitor for EtOH withdrawal and initiate benzos as indicated. Per prior adverse effect of Ativan was delirium which occurred while undergoing treatment for EtOH w/d. - Thiamine/MVI/folic acid supplementation. - Fluid restriction to 1500mL/day - NaCl tablets 1gram po BID - Monitor Na+ level closely - Cont. Librium 25mg TID - Electrolyte replacement - DT precautions - Discussed with the patient the benefits of AA and offered the pt information for connecting with them but he declines at this time but states that he "will think about it" Tobacco abuse h/o PRESTON wedge resection - pathology c/w granulomatous inflammation - Albuterol every 2 hours as needed. Hypertension - Lisinopril 20mg daily ordered - Metoprolol 75 mg BID - Vasotec PRN - Clonidine PRN - 2-D Echo (07/26/13) ejection fraction 55-60%. - Troponin negative GERD - Cont. Protonix 40 mg daily - Heart healthy diet Chronic kidney disease stage III Severe hypomagnesemia Hyponatremia Hypokalemia - Cortisol, TSH/Free T4 were WNL - Urine Na+ 35, Urine K+ 15, serum/urine osm 253/188 - Magnesium at admission was 0.4. Pt received Magnesium 4 mg IV with improvement - Pts Na+ correction is ongoing, continue slow correction, NaCL tablets BID and fluid restriction - Replace potassium - Monitor electrolytes closely Chronic anemia Thrombocytopenia - May be secondary to alcohol abuse - Monitor CBC DVT prophylaxis with Heparin subcutaneous (2) Altered mental status ICD Codes: R41.82 - Altered mental status Status: Acute Plan: - See above (3) HTN (hypertension), benign ICD Codes: I10 - HTN (hypertension), benign Status: Acute Plan: - See above (4) Alcohol abuse ICD Codes: F10.10 - Alcohol abuse Status: Acute Plan: - See above Assessment and Plan Patient examined. Assessment and plan formulated with Tatianna Juarez PA-C. I agree with the above. Tatianna Juarez Jul 08, 2017 13:14 Charles Valverde DO Jul 15, 2017 11:24
[2017-07-08] MEDS ORDERED: POTASSIUM CHLORIDE 20 MEQ CONTROLLED RELEASE TAB PO ONE (14:30)
[2017-07-08 16:15] VITALS: BP 169/80; PULSE 78; RESP 20; TEMP 97; O2SAT 98
[2017-07-08 18:49] VITALS: BP 143/67
[2017-07-08 20:00] VITALS: BP 173/83; PULSE 79; RESP 21; TEMP 97.9; O2SAT 98
[2017-07-08 23:00] VITALS: BP_SYST 190; BP_SYST 201; BP_DIAS 90; PULSE 85; RESP 20; O2SAT 83
[2017-07-09] VITALS (10 sets, daily range): BP systolic 144–212; BP diastolic 67–93; PULSE 75–113; RESP 18–20; TEMP 97–98.4; O2SAT 95–100
[2017-07-09] MEDS: ENALAPRILAT 1.25 MG/ML VIAL IV PUSH PRN ×2 (01:10→17:52)
[2017-07-09 06:53] LABS: MAGNESIUM 0.7 MG/DL (1.5-2.5); POTASSIUM 3.6 MEQ/L (3.5-5.1)
[2017-07-09] MEDS: REMOVE OLD PATCH T-DERMAL SCH (09:00)
[2017-07-09] MEDS: LISINOPRIL 20 MG TAB PO SCH (09:50)
[2017-07-09] MEDS: chlordiazePOXIDE 25 MG CAP PO SCH ×3 (09:50→21:05)
[2017-07-09] MEDS: FOLIC ACID 1 MG TAB PO SCH (09:50)
[2017-07-09] MEDS: SODIUM CHLORIDE 1 GRAM TAB PO SCH ×2 (09:50→21:05)
[2017-07-09] MEDS: PANTOPRAZOLE SOD 40 MG DELAYED RELEASE TAB PO SCH (09:50)
[2017-07-09] MEDS: THIAMINE HCL 100 MG TAB PO SCH (09:50)
[2017-07-09] MEDS: MULTIVITAMINS/MINERALS THERAPEUTIC TAB PO SCH (09:51)
[2017-07-09] MEDS: NICOTINE 14 MG/24 HR PATCH T-DERMAL SCH (09:51)
[2017-07-09] MEDS: HEPARIN SODIUM - SQ 10,000 UNITS/ML VIAL SQ SCH ×2 (09:51→21:05)
[2017-07-09] MEDS: METOPROLOL TARTRATE 25 MG TAB PO SCH ×2 (09:51→21:05)
--- NOTE | 2017-07-09 10:58 | HHI.PR ---
Subjective Remarks Pt is anxious to go home Tolerating diet well Denies any abd pain, chest pain, SOB, nausea/vomiting Pt reports that he has been ambulating in the room to the bathroom Objective Vitals Vital Signs Date Time Temp Pulse Resp B/P (MAP) Pulse Ox O2 Delivery O2 Flow Rate FiO2 07/09/17 07:58 98.4 79 19 195/93 (127) 98 07/09/17 05:48 78 20 162/75 (104) 95 07/09/17 04:31 81 19 169/78 (108) 96 07/09/17 02:42 80 19 168/86 (113) 97 07/09/17 02:37 80 19 184/88 (120) 100 07/09/17 01:04 79 19 188/88 (121) 98 07/09/17 00:00 97.8 82 18 212/93 (132) 98 07/08/17 23:00 85 20 201/90 (127) 83 07/08/17 20:00 97.9 79 21 173/83 (113) 98 07/08/17 18:49 143/67 (92) 07/08/17 16:15 97.0 78 20 98 07/08/17 16:15 97.0 78 20 169/80 (109) 98 07/08/17 12:18 99.1 81 20 170/84 (112) 97 Result Diagram: 07/08/17 0746 07/09/17 0557 Other Results Laboratory Tests Test 07/07/17 11:37 07/07/17 14:44 07/08/17 07:46 07/09/17 05:57 Sodium Level 127 MEQ/L 131 MEQ/L 132 MEQ/L Serum Osmolality 263 MOSM/KG Urine Osmolality 94 MOSM/KG Urine Random Sodium 19 MEQ/L White Blood Count 6.8 TH/MM3 Red Blood Count 3.01 MIL/MM3 Hemoglobin 10.2 GM/DL Hematocrit 30.0 % Mean Corpuscular Volume 99.8 FL Mean Corpuscular Hemoglobin 33.9 PG Mean Corpuscular Hemoglobin Concent 34.0 % Red Cell Distribution Width 15.3 % Platelet Count 231 TH/MM3 Mean Platelet Volume 7.7 FL Neutrophils (%) (Auto) 65.1 % Lymphocytes (%) (Auto) 12.2 % Monocytes (%) (Auto) 21.4 % Eosinophils (%) (Auto) 0.5 % Basophils (%) (Auto) 0.8 % Neutrophils # (Auto) 4.4 TH/MM3 Lymphocytes # (Auto) 0.8 TH/MM3 Monocytes # (Auto) 1.5 TH/MM3 Eosinophils # (Auto) 0.0 TH/MM3 Basophils # (Auto) 0.1 TH/MM3 CBC Comment DIFF FINAL Differential Comment Blood Urea Nitrogen 9 MG/DL 12 MG/DL Creatinine 1.01 MG/DL 0.95 MG/DL Random Glucose 112 MG/DL 123 MG/DL Calcium Level 8.1 MG/DL 9.0 MG/DL Magnesium Level 0.8 MG/DL 0.7 MG/DL Potassium Level 3.3 MEQ/L 3.6 MEQ/L Chloride Level 97 MEQ/L 98 MEQ/L Carbon Dioxide Level 22.6 MEQ/L 22.0 MEQ/L Anion Gap 11 MEQ/L 12 MEQ/L Estimat Glomerular Filtration Rate 75 ML/MIN 80 ML/MIN Objective Remarks General: NAD, AAOx3 Chest: CTA Cardiac: Regular Abd: +BS, soft ND/NT Ext: No edema A/P Problem List: (1) Hyponatremia ICD Codes: E87.1 - Hyponatremia Status: Acute Plan: Pt is a 62 yo male with HTN, GERD, EtOH abuse, tobacco abuse who presents to [facility] ED with confusion and pt had fallen at home. His reports no prior known history of seizures however when he was admitted in 2012 for syncope workup he experienced severe DTs, aspiration pneumonia, mechanical ventilation. There was question of whether he had alcohol withdrawal seizure at that time. Syncope workup including echo, telemetry, carotid ultrasound and MRI were unremarkable at that time. Pt was originally admitted on 07/04 to the intensivists but left AMA on 07/06/17 and returned a few hours later for readmission. Hyponatremia Confusion History of alcohol abuse with h/o DTs Acute Seizure - Pt had a 5 cm scalp laceration that was repaired in the ED after a fall at home. - CT brain (07/04) no acute abnormality. - When he went for CT C-spine he began having a seizure which resolved spontaneously without treatment. Prior h/o ?seizure associated with EtOH w/d. - CT C-spine (07/04) was negative. - Pts Na+ at admission was 119. Pt has CKD, stage 3 and a history of long- term alcohol abuse. Reportedly quit drinking about a week and a half prior to admission but he reported drinking one alcoholic beverage the day prior to admission. He has been drinking more water at home, around three 16 ounce bottles of water and Powerade every day. - Seizure etiology multifactorial, secondary to severe electrolyte abnormalities with hyponatremia/hypomagnesemia, EtOH withdrawal may also be contributing as history of cessation 1 1/2 weeks prior to admission but this time line may not be reliable given that is not home during the day. - EEG (07/06) --> normal awake EEG, no evidence for a focal or diffuse abnormality - B12 level 503 - Will hold off on anticonvulsant at this time. No driving, climbing ladders , swimming x 6 months. - Monitor for EtOH withdrawal and initiate benzos as indicated. Per prior adverse effect of Ativan was delirium which occurred while undergoing treatment for EtOH w/d. - Thiamine/MVI/folic acid supplementation. - Fluid restriction to 1500mL/day - NaCl tablets 1gram po BID - Monitor Na+ level closely - Decreased scheduled Librium to 25mg BID and continue to titrate down - Electrolyte replacement - DT precautions - Discussed with the patient the benefits of AA and offered the pt information for connecting with them but he declines at this time but states that he "will think about it" Tobacco abuse h/o PRESTON wedge resection - pathology c/w granulomatous inflammation - Albuterol every 2 hours as needed. Hypertension - BP more elevated this morning prior to scheduled meds, re-evaluate now - Lisinopril 20mg daily ordered - Metoprolol 75 mg BID - Vasotec PRN - Clonidine PRN - 2-D Echo (07/26/13) ejection fraction 55-60%. - Troponin negative GERD - Cont. Protonix 40 mg daily - Heart healthy diet Chronic kidney disease stage III Severe hypomagnesemia Hyponatremia Hypokalemia - Cortisol, TSH/Free T4 were WNL - Urine Na+ 35, Urine K+ 15, serum/urine osm 253/188 - Magnesium at admission was 0.4. Pt received Magnesium 4 mg IV with improvement - Pts Na+ correction is ongoing, continue slow correction, NaCL tablets BID and fluid restriction - Potassium replaced on 07/08 - Replace Mag - Monitor electrolytes closely Chronic anemia Thrombocytopenia - May be secondary to alcohol abuse - Monitor CBC DVT prophylaxis with Heparin subcutaneous (2) Altered mental status ICD Codes: R41.82 - Altered mental status Status: Acute Plan: - See above (3) HTN (hypertension), benign ICD Codes: I10 - HTN (hypertension), benign Status: Acute Plan: - See above (4) Alcohol abuse ICD Codes: F10.10 - Alcohol abuse Status: Acute Plan: - See above Assessment and Plan Patient examined. Assessment and plan formulated with Tatianna Juarez PA-C. I agree with the above. Tatianna Juarez Jul 09, 2017 10:58 Charles Valverde DO Jul 15, 2017 11:24
[2017-07-09] MEDS: MAGNESIUM SULFATE 1 GM PREMIX 100 ML IV SCH ×3 (12:55→16:20)
[2017-07-10] VITALS: BP_SYST 105; BP_SYST 119; BP_DIAS 75; BP_DIAS 79; PULSE 77; PULSE 95; RESP 18; RESP 20; TEMP 97; TEMP 97.2; O2SAT 92; O2SAT 94
[2017-07-10 04:00] VITALS: BP 139/75; PULSE 85; RESP 18; TEMP 97; O2SAT 95
[2017-07-10 08:00] VITALS: BP 148/74; PULSE 75; RESP 18; TEMP 98.5; O2SAT 94
[2017-07-10 08:23] LABS: MAGNESIUM 0.9 MG/DL (1.5-2.5); POTASSIUM 3.4 MEQ/L (3.5-5.1)
[2017-07-10] MEDS: THIAMINE HCL 100 MG TAB PO SCH (08:27)
[2017-07-10] MEDS: FOLIC ACID 1 MG TAB PO SCH (08:27)
[2017-07-10] MEDS: PANTOPRAZOLE SOD 40 MG DELAYED RELEASE TAB PO SCH (08:27)
[2017-07-10] MEDS: LISINOPRIL 20 MG TAB PO SCH (08:27)
[2017-07-10] MEDS: MULTIVITAMINS/MINERALS THERAPEUTIC TAB PO SCH (08:27)
[2017-07-10] MEDS: SODIUM CHLORIDE 1 GRAM TAB PO SCH (08:27)
[2017-07-10] MEDS: HEPARIN SODIUM - SQ 10,000 UNITS/ML VIAL SQ SCH (08:28)
[2017-07-10] MEDS: chlordiazePOXIDE 25 MG CAP PO SCH (08:28)
[2017-07-10] MEDS: METOPROLOL TARTRATE 25 MG TAB PO SCH (08:28)
[2017-07-10] MEDS: NICOTINE 14 MG/24 HR PATCH T-DERMAL SCH (08:29)
[2017-07-10] MEDS: REMOVE OLD PATCH T-DERMAL SCH (08:29)
[2017-07-10] MEDS ORDERED: POTASSIUM CHLORIDE 10 MEQ CONTROLLED RELEASE TAB PO ONE (11:00)
[2017-07-10] MEDS: MAGNESIUM SULFATE 1 GM PREMIX 100 ML IV SCH ×4 (11:14→16:49)
[2017-07-10 12:00] VITALS: BP 143/67; PULSE 97; RESP 18; TEMP 97.7; O2SAT 97
[2017-07-10] MEDS ORDERED: SODI1TAB PO (13:32)
[2017-07-10] MEDS ORDERED: MAGN250T11 PO (13:32)
--- NOTE | 2017-07-10 13:47 | HHI.DS ---
Discharge Summary Admission Date Jul 07, 2017 at 03:50 Discharge Date: Jul 10, 2017 Admitting Diagnosis Hyponatremia ETOH withdraw (1) Hyponatremia ICD Codes: E87.1 - Hyponatremia Status: Acute (2) Altered mental status ICD Codes: R41.82 - Altered mental status Status: Acute (3) HTN (hypertension), benign ICD Codes: I10 - HTN (hypertension), benign Status: Acute (4) Alcohol abuse ICD Codes: F10.10 - Alcohol abuse Status: Acute Consultants Dr. Poole Procedures none CBC/BMP: 07/08/17 0746 07/10/17 0650 Significant Findings Laboratory Tests Test 07/07/17 14:44 07/08/17 07:46 07/09/17 05:57 07/10/17 06:50 Urine Osmolality 94 MOSM/KG (300-1300) Red Blood Count 3.01 MIL/MM3 (4.50-5.90) Hemoglobin 10.2 GM/DL (13.0-17.0) Hematocrit 30.0 % (39.0-51.0) Monocytes (%) (Auto) 21.4 % (0.0-8.0) Lymphocytes # (Auto) 0.8 TH/MM3 (1.0-4.8) Monocytes # (Auto) 1.5 TH/MM3 (0-0.9) Random Glucose 112 MG/DL (74-106) 123 MG/DL (74-106) Calcium Level 8.1 MG/DL (8.5-10.1) Magnesium Level 0.8 MG/DL (1.5-2.5) 0.7 MG/DL (1.5-2.5) 0.9 MG/DL (1.5-2.5) Sodium Level 131 MEQ/L (136-145) 132 MEQ/L (136-145) 132 MEQ/L (136-145) Potassium Level 3.3 MEQ/L (3.5-5.1) 3.4 MEQ/L (3.5-5.1) Chloride Level 97 MEQ/L (98-107) 97 MEQ/L (98-107) Estimat Glomerular Filtration Rate 75 ML/MIN (>89) 80 ML/MIN (>89) 77 ML/MIN (>89) PE at Discharge General: NAD, slightly confused but improving. Chest: CTA Cardiac: Regular Abd: +BS, soft ND/NT Ext: No edema Hospital Course Pt is a 62 yo male with HTN, GERD, EtOH abuse, tobacco abuse who presents to [facility] ED with confusion and pt had fallen at home. His reports no prior known history of seizures however when he was admitted in 2012 for syncope workup he experienced severe DTs, aspiration pneumonia, mechanical ventilation. There was question of whether he had alcohol withdrawal seizure at that time. Syncope workup including echo, telemetry, carotid ultrasound and MRI were unremarkable at that time. Pt was originally admitted on 07/04 to the intensivists but left AMA on 07/06/17 and returned a few hours later for readmission. Hyponatremia Confusion History of alcohol abuse with h/o DTs Acute Seizure - Pt had a 5 cm scalp laceration that was repaired in the ED after a fall at home. - CT brain (07/04) no acute abnormality. - When he went for CT C-spine he began having a seizure which resolved spontaneously without treatment. Prior h/o ?seizure associated with EtOH w/d. - CT C-spine (07/04) was negative. - Pts Na+ at admission was 119. Pt has CKD, stage 3 and a history of long- term alcohol abuse. Reportedly quit drinking about a week and a half prior to admission but he reported drinking one alcoholic beverage the day prior to admission. He has been drinking more water at home, around three 16 ounce bottles of water and Powerade every day. - Seizure etiology multifactorial, secondary to severe electrolyte abnormalities with hyponatremia/hypomagnesemia, EtOH withdrawal may also be contributing as history of cessation 1 1/2 weeks prior to admission but this time line may not be reliable given that is not home during the day. - EEG (07/06) --> normal awake EEG, no evidence for a focal or diffuse abnormality - B12 level 503 - Will hold off on anticonvulsant at this time. No driving, climbing ladders , swimming x 6 months. - Monitor for EtOH withdrawal and initiate benzos as indicated. Per prior adverse effect of Ativan was delirium which occurred while undergoing treatment for EtOH w/d. - Thiamine/MVI/folic acid supplementation. - Fluid restriction to 1500mL/day - NaCl tablets 1gram po BID - Monitor Na+ level closely - Decreased scheduled Librium to 25mg BID and continue to titrate down - Electrolyte replacement - DT precautions - Discussed with the patient the benefits of AA and offered the pt information for connecting with them but he declines at this time but states that he "will think about it" - Discussed SNF/HHC/Home without HHC. Patient refused SNF or HHC. Wishes to be DC home. Agrees to Follow up with PCP in 1 weeks and have outpatient labs in 3-5 days - Instructed patient to abstain from ETOH use- he agrees Tobacco abuse h/o PRESTON wedge resection - pathology c/w granulomatous inflammation - Albuterol every 2 hours as needed. Hypertension - BP more elevated this morning prior to scheduled meds, re-evaluate now - Lisinopril 20mg daily ordered - Metoprolol 75 mg BID - Vasotec PRN - Clonidine PRN - 2-D Echo (07/26/13) ejection fraction 55-60%. - Troponin negative GERD - Cont. Protonix 40 mg daily - Heart healthy diet Chronic kidney disease stage III Severe hypomagnesemia Hyponatremia Hypokalemia - Cortisol, TSH/Free T4 were WNL - Urine Na+ 35, Urine K+ 15, serum/urine osm 253/188 - Magnesium at admission was 0.4. Pt received Magnesium 4 mg IV with improvement - Pts Na+ correction is ongoing, continue slow correction, NaCL tablets BID and fluid restriction - Potassium replaced on 07/08 - Replace Mag - Monitor electrolytes closely Chronic anemia Thrombocytopenia - May be secondary to alcohol abuse - Monitor CBC DVT prophylaxis with Heparin subcutaneous Pt Condition on Discharge: Stable Discharge Disposition: Discharge Home Discharge Instructions DIET: Follow Instructions for: As Tolerated, No Restrictions Activities you can perform: Regular-No Restrictions Follow up Referrals: PCP Follow-up - [address] Jefferson Monteiro New Orders: BASIC METABOLIC PROF - 3-5 Days MAGNESIUM (MG) - 3-5 Days New Medications: Magnesium Oxide (Magnesium Oxide) 250 Mg Tab 250 MG PO DAILY for low magnesium, #30 TAB 0 Refills Sodium Chloride (Sodium Chloride) 1 Gram Tab 1 GM PO BID for low sodium, #60 TAB 0 Refills Continued Medications: Lisinopril (Lisinopril) 20 Mg Tab 20 MG PO DAILY, #30 TAB 0 Refills Metoprolol Tartrate (Metoprolol Tartrate) 50 Mg Tab 75 MG PO BID, #60 TAB 0 Refills Multiple Vitamins W/ Minerals (Multiple Vitamin/Minerals) 1 Tab Tab 1 TAB PO DAILY Pantoprazole (Pantoprazole) 40 Mg Tab 40 MG PO DAILY for Esophageal ulcer, #30 TAB 0 Refills Moraima Rob Jul 10, 2017 13:47
[2017-07-10] MEDS ORDERED: CHLO25CA9 PO (13:59)
[2017-07-10] MEDS ORDERED: WALKER WHEELS/F1 MIS (15:08)
[2017-07-10 16:00] VITALS: BP 132/61; PULSE 18; RESP 18; TEMP 97.6; O2SAT 96
--- NOTE | 2017-07-10 18:54 | RADRPT ---
EXAM DATE/TIME: 07/10/2017 17:28 [place] COMPARISON: US KIDNEY/RENAL/BLADDER, July 04, 2017, 23:03. INDICATIONS : Mass. CONTRAST: 8 cc Omniscan (gadodiamide) IV MEDICAL HISTORY : Hypertension. GERD, Seizures SURGICAL HISTORY : ENCOUNTER: Initial ACUITY: 1 week PAIN SCORE: 0/10 LOCATION: Abdomen TECHNIQUE: Multiplanar, multisequence magnetic resonance imaging of the abdomen was performed without and with i ntravenous contrast. FINDINGS: Tiny right pleural effusion. LIVER: No gross abnormality seen in the visualized portion of the liver. No filling defects in the gallblad bernabe lumen. SPLEEN: Within normal limits. PANCREAS: Within normal limits. ADRENALS: Within normal limits. KIDNEYS: Examination was performed to evaluate an abnormality seen in the upper pole the right kidney on recen t renal ultrasound having both cystic and solid components. An MRI examination of the kidneys demons trates a symmetric and normal in appearance bilaterally. No cystic or solid lesions seen. No eviden ce of hydronephrosis. There is no MR correlate to the finding seen on ultrasound. OTHER: Aorta is nonaneurysmal. There is no lymphadenopathy. CONCLUSION: 1. Normal MRI of the kidneys. In particular, no evidence of mass or cyst upper pole right kidney. 2. Tiny right pleural effusion. Marcelo Pandey MD on July 10, 2017 at 18:47 Board Certified Radiologist. This report was verified electronically.
== END 2017-07-10 21:20 | disposition home or self-care (01) | DRG 641 ==
LOC: EDACCT# → NEDA 03:50 → N05A 04:30
PROVIDERS: ADMIT Hospitalist; ATTEND Hospitalist
DX: E83.42 Hypomagnesemia (principal); D69.6 Thrombocytopenia, unspecified; N18.3 Chronic kidney disease, stage 3 (moderate); G40.89 Other seizures; E87.1 Hypo-osmolality and hyponatremia; F10.239 Alcohol dependence with withdrawal, unspecified; I12.9 Hypertensive chronic kidney disease with stage 1 through stage 4 chronic kidney disease, or unspecified chronic kidney disease; E87.6 Hypokalemia; F17.210 Nicotine dependence, cigarettes, uncomplicated; Z90.2 Acquired absence of lung [part of]; K21.9 Gastro-esophageal reflux disease without esophagitis; D64.9 Anemia, unspecified; R73.9 Hyperglycemia, unspecified
CPT/HCPCS: 74183; 80048; 83735; 83930; 83935; 84295; 84300; 85025; J1644; J3475; J7030

== ENCOUNTER 2017-07-15 19:47 | Emergency (ER) | payer OTHER ==
[~2017-07-15 19:47] MED LIST changes: +CHLO25CA9 PO; +MAGN250T11 PO; +SODI1TAB PO; +WALKER WHEELS/F1 MIS
[2017-07-15 19:50] VITALS: BP 112/56; PULSE 103; RESP 16; TEMP 98.9; O2SAT 97
--- NOTE | 2017-07-15 20:19 | PD ---
HPI Chief Complaint: Laceration/Skin Injury Time Seen by Provider: 20:18 Travel History International Travel<30 days: No Contact w/Intl Traveler<30days: No Traveled to known affect area: No History of Present Illness HPI 62-year-old male presents to emergency room for removal of mykel from his superior scalp. Patient had mykel placed 11 days ago after sustaining laceration. Patient states he feels it has been healing well. He has had no pain. No drainage. No fever or chills. Patient has no other symptoms to report. PFSH Past Medical History Cancer: No Cardiovascular Problems: Yes Endocrine: No Gastrointestinal Disorders: No GERD: Yes Genitourinary: No Hypertension: Yes Immune Disorder: No Implanted Vascular Access Dvce: No Musculoskeletal: No Neurologic: No Psychiatric: No Reproductive: No Respiratory: No Pneumonia: Yes Ulcer: Yes Past Surgical History Pacemaker: No Thoracic Surgery: Yes (left upper wedge resection) Other Surgery: Yes ( HEART/LUNG SX 15 YEARS AGO ) Social History Alcohol Use: Yes (quit of this month) Tobacco Use: No (quit 24 february) Substance Use: No Allergies-Medications (Allergen,Severity, Reaction): Coded Allergies: lorazepam (Verified Adverse Reaction, Unknown, 07/04/17) delirium Reported Meds & Prescriptions Reported Meds & Active Scripts Active Walker with Front Wheels (Device) 1 Mis Mis Ea .ROUTE DIRECTED Chlordiazepoxide HCl 25 Mg Capsule 25 Mg PO DIRECTED 25mg po bid x 2 days then 25mg po daily x 3 days. Magnesium Oxide 250 Mg Tab 250 Mg PO DAILY Sodium Chloride 1 Gram Tab 1 Gm PO BID Reported Pantoprazole (Pantoprazole Sodium) 40 Mg Tab 40 Mg PO DAILY Multiple Vitamin/Minerals (Multiple Vitamins W/ Minerals) 1 Tab Tab 1 Tab PO DAILY Metoprolol Tartrate 50 Mg Tab 75 Mg PO BID Lisinopril 20 Mg Tab 20 Mg PO DAILY Review of Systems Except as stated in HPI: all other systems reviewed are Neg Physical Exam Narrative GENERAL: Well-nourished, well-developed outpatient in no acute distress. SKIN: Focused skin assessment warm/dry. Well approximated, scabbed over laceration on the superior scalp approximately 6 centimeters. [address] No erythema or edema. No drainage. HEAD: Normocephalic. EYES: No scleral icterus. No injection or drainage. NECK: Supple, trachea midline. No JVD or lymphadenopathy. CARDIOVASCULAR: Regular rate RESPIRATORY: No accessory muscle use. GASTROINTESTINAL: Abdomen nondistended. MUSCULOSKELETAL: No cyanosis, or edema. BACK: without obvious deformity Data Data Last Documented VS Vital Signs Date Time Temp Pulse Resp B/P (MAP) Pulse Ox O2 Delivery O2 Flow Rate FiO2 07/15/17 20:19 07/15/17 19:50 98.9 103 16 97 Room Air Orders Orders Ed Discharge Order (07/15/17 20:18) MDM Medical Decision Making Medical Screen Exam Complete: Yes Emergency Medical Condition: Yes Medical Record Reviewed: Yes Differential Diagnosis Laceration well approximated versus healing versus infection versus wound dehiscence Narrative Course 52-year-old male presents to the emergency department for removal of mykel to from the superior scalp. 5 mykel are removed without difficulty. Patient tolerated this well. He is counseled on care. Him and his agreed to return immediately with any acute worsening of symptoms. Diagnosis Primary Impression: Removal of staple Referrals: Primary Care Physician Patient Instructions: Acute Wound Care (DC), General Instructions Additional Instructions: KEEP AREA CLEAN RETURN TO ED WITH ACUTE WORSENING OF SYMPTOMS Med/Other Pt SpecificInfo: No Meds Exist/No RX given Disposition: 01 DISCHARGE HOME Condition: Stable Loulou Franks Jul 15, 2017 20:19
== END 2017-07-15 20:26 | disposition home or self-care (01) ==
LOC: NED 19:47
DX: Z48.02 Encounter for removal of sutures (principal); K21.9 Gastro-esophageal reflux disease without esophagitis; I10 Essential (primary) hypertension; Z79.899 Other long term (current) drug therapy; Z88.8 Allergy status to other drugs, medicaments and biological substances
CPT/HCPCS: 99281